=== PATIENT | female | born 1955 ===

== ENCOUNTER 2018-09-25 08:09 | Day surgery (SDC) | payer BC ==
[2018-09-24 13:46] VITALS: BMI 25.6
[2018-09-25] MEDS ORDERED: Propofol 10 mg/ml Inj (20 ML) ONE (09:13)
[2018-09-25] MEDS ORDERED: Lidocaine Hydrochloride 5 ML INJ ONE (09:15)
[2018-09-25] MEDS ORDERED: Lactated Ringer's 1,000 ML IV ONE (09:30)
[2018-09-25 13:46] VITALS: PULSE 78; RESP 20; TEMP 98.5
[2018-09-25 13:49] VITALS: O2SAT 98
[2018-09-25 13:55] VITALS: BP 138/76
== END 2018-09-25 11:43 | disposition home or self-care (01) ==
LOC: C.ENDO 08:09
PROVIDERS: ATTEND Internal Medicine Gastroenterology
DX: Z12.11 Encounter for screening for malignant neoplasm of colon (principal); D12.3 Benign neoplasm of transverse colon; K62.1 Rectal polyp; K57.30 Diverticulosis of large intestine without perforation or abscess without bleeding; K64.1 Second degree hemorrhoids; Z80.0 Family history of malignant neoplasm of digestive organs; I10 Essential (primary) hypertension; Z98.890 Other specified postprocedural states; Z79.899 Other long term (current) drug therapy
CPT/HCPCS: 45380; 45385; 88305; J2704; J7120